=== PATIENT | male | born 1975 | race Caucasian/White ===

== ENCOUNTER 2020-03-05 15:47 | Emergency (ER) | payer BC ==
[~2020-03-05] VITALS: Ht 188 cm; Wt 192.8 kg
[2020-03-05] MEDS ORDERED: VIBERZI100 MG PO (15:58)
[2020-03-05] MEDS ORDERED: NORVASC10 MG PO (15:59)
[2020-03-05] MEDS ORDERED: BYSTOLIC10 MG PO (15:59)
[2020-03-05] MEDS ORDERED: LOSARTAN POTAS100 MG PO (16:00)
[2020-03-05] MEDS ORDERED: DEPO-TESTO200 MG/1 M IM (16:01)
[2020-03-05 16:50] LABS: URINE BILIRUBIN NEGATIVE (Negative); URINE BLOOD NEGATIVE (Negative); URINE CLARITY CLEAR; URINE COLOR YELLOW; URINE GLUCOSE-RANDOM* NEGATIVE (Negative); URINE KETONES TRACE (Negative); URINE LEUKOCYTES-REFLEX NEGATIVE (Negative); URINE NITRITE-REFLEX NEGATIVE (Negative); URINE PROTEIN (DIPSTICK) 2+ (Negative); URINE SPECIFIC GRAVITY >= 1.030 (1.005-1.035); URINE UROBILINOGEN 0.2 E.U./dl (0.2-1.0)
[2020-03-05 17:07] LABS: SQUAMOUS 0-3 Few /LPF (0-3)
[2020-03-05 17:08] LABS: CASTS None Seen /LPF (None Seen); CRYSTALS None Seen /LPF (None Seen); URINE RBC None Seen /HPF (0-2)
[2020-03-05 17:09] LABS: BACTERIA-REFLEX 1-9 Few /HPF (None Seen)
[2020-03-05 18:03] LABS: ABSOLUTE NEUTROPHILS 5.7 thou/uL (1.4-8.2); BASOPHILS 0.6 % (0.0-2.0); EOSINOPHILS 2.8 % (0.0-3.0); HEMATOCRIT 41.1 % (42.0-52.0); HEMOGLOBIN 14.1 gm/dL (14.0-18.0); LYMPHOCYTES 14.5 % (24.0-44.0); MCH 30.9 pg (26.0-34.0); MCHC 34.2 g/dL (28.0-37.0); MCV 90.4 fL (80.0-100.0); MONOCYTES 10.5 % (1.0-8.0); PLATELET COUNT 233 thou/uL (150-400); POLYS 71.6 % (36.0-66.0); RBC 4.54 mil/uL (4.50-6.00); RDW 13.6 % (10.5-14.5); WBC 7.9 thou/uL (4.0-11.0)
[2020-03-05 18:10] LABS: CALCIUM 9.3 mg/dL (8.5-10.1); CREATININE 2.2 mg/dL (0.7-1.3); POTASSIUM 4.9 mmol/L (3.5-5.1)
[2020-03-05] MEDS ORDERED: DOXYCYCLINE 10100 MG PO (18:42)
[2020-03-05 19:19] VITALS: BP 142/76
== END 2020-03-05 19:58 | disposition home or self-care (01) ==
LOC: ER 15:47
PROVIDERS: Emergency Medicine
DX: N39.0 Urinary tract infection, site not specified (principal); N50.819 Testicular pain, unspecified; I10 Essential (primary) hypertension; E78.5 Hyperlipidemia, unspecified; E66.01 Morbid (severe) obesity due to excess calories; Z90.49 Acquired absence of other specified parts of digestive tract; Z98.890 Other specified postprocedural states; Z79.899 Other long term (current) drug therapy; Z88.2 Allergy status to sulfonamides; Z68.43 Body mass index [BMI] 50.0-59.9, adult

== ENCOUNTER 2020-03-17 12:10 | Emergency (ER) | payer BC ==
[~2020-03-17] VITALS: Ht 185.4 cm; Wt 192.8 kg
[~2020-03-17 12:10] MED LIST: BYSTOLIC10 MG PO; DEPO-TESTO200 MG/1 M IM; DOXYCYCLINE 10100 MG PO; LOSARTAN POTAS100 MG PO; NORVASC10 MG PO; VIBERZI100 MG PO
[2020-03-17 15:22] LABS: URINE BILIRUBIN NEGATIVE (Negative); URINE BLOOD NEGATIVE (Negative); URINE CLARITY CLEAR; URINE COLOR YELLOW; URINE GLUCOSE-RANDOM* NEGATIVE (Negative); URINE KETONES NEGATIVE (Negative); URINE LEUKOCYTES-REFLEX NEGATIVE (Negative); URINE NITRITE-REFLEX NEGATIVE (Negative); URINE PROTEIN (DIPSTICK) 2+ (Negative); URINE SPECIFIC GRAVITY >= 1.030 (1.005-1.035); URINE UROBILINOGEN 0.2 E.U./dl (0.2-1.0)
[2020-03-17 15:27] LABS: ABSOLUTE NEUTROPHILS 4.3 thou/uL (1.4-8.2); BASOPHILS 0.8 % (0.0-2.0); EOSINOPHILS 3.3 % (0.0-3.0); HEMATOCRIT 39.1 % (42.0-52.0); HEMOGLOBIN 13.1 gm/dL (14.0-18.0); LYMPHOCYTES 19.3 % (24.0-44.0); MCH 30.4 pg (26.0-34.0); MCHC 33.4 g/dL (28.0-37.0); MCV 90.9 fL (80.0-100.0); MONOCYTES 8.5 % (1.0-8.0); PLATELET COUNT 206 thou/uL (150-400); POLYS 68.1 % (36.0-66.0); RDW 14.1 % (10.5-14.5); WBC 6.4 thou/uL (4.0-11.0)
[2020-03-17 15:38] LABS: CALCIUM 8.8 mg/dL (8.5-10.1); CREATININE 1.6 mg/dL (0.7-1.3); POTASSIUM 4.4 mmol/L (3.5-5.1)
[2020-03-17 15:42] LABS: SQUAMOUS 0-3 Few /LPF (0-3)
[2020-03-17 15:43] LABS: BACTERIA-REFLEX 1-9 Few /HPF (None Seen); CASTS None Seen /LPF (None Seen); CRYSTALS None Seen /LPF (None Seen); URINE RBC None Seen /HPF (0-2); URINE WBC-REFLEX 0-5 Rare /HPF (0-5)
[2020-03-17] MEDS ORDERED: PYRIDIUM200 MG PO (16:02)
[2020-03-17 16:57] VITALS: BP 139/79
== END 2020-03-17 16:57 | disposition home or self-care (01) ==
LOC: ER 12:10
PROVIDERS: Emergency Medicine
DX: N30.90 Cystitis, unspecified without hematuria (principal); I10 Essential (primary) hypertension; E78.5 Hyperlipidemia, unspecified; Z79.899 Other long term (current) drug therapy; Z88.2 Allergy status to sulfonamides